=== PATIENT | female | born 1970 | race Caucasian/White ===

== ENCOUNTER 2019-04-05 14:34 | Outpatient (RCR) | payer OTHER | END 2019-07-04 | disposition home or self-care (01) | LOC: WSOH | DX: S50.01XA Contusion of right elbow, initial encounter (principal); W00.0XXA Fall on same level due to ice and snow, initial encounter; M25.561 Pain in right knee; M54.5 Low back pain; M54.2 Cervicalgia; F41.8 Other specified anxiety disorders; G43.909 Migraine, unspecified, not intractable, without status migrainosus; G25.81 Restless legs syndrome; G47.69 Other sleep related movement disorders; Z87.828 Personal history of other (healed) physical injury and trauma; Y99.0 Civilian activity done for income or pay ==

== ENCOUNTER → 2019-05-24 | Outpatient (CLI) | payer BC | LOC: MC.RAD 07:20 | DX: N63.20 Unspecified lump in the left breast, unspecified quadrant (principal) | CPT/HCPCS: G0279 ==

== ENCOUNTER → 2020-07-20 | Outpatient (CLI) | payer BC | LOC: MC.RAD 10:05 | DX: Z12.31 Encounter for screening mammogram for malignant neoplasm of breast (principal) ==